=== PATIENT | male | born 1965 | race Caucasian/White ===

== ENCOUNTER 2019-10-20 19:50 | Emergency (ER) | payer MEDICAID ==
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
--- NOTE | 2019-10-21 07:50 | CR ---
Chest: Portable view of the chest was obtained. Comparison: No previous chest imaging is available. Thoracic aorta is enlarged and may possibly be aneurysmal. Prior sternotomy is noted. Surgical clips are seen overlying the right lung apex. Lungs are clear with no acute parenchymal change. Heart is not enlarged. Bony structures are grossly intact. Impression: 1. Thoracic aorta is enlarged and possibly aneurysmal. 2. Previous sternotomy. Surgical clips overlying the upper right abdomen. 3. Nothing acute is otherwise seen on portable chest x-ray. Diagnostic code #3 Study was dictated in MDT
== END 2019-10-20 20:34 | disposition other institution (70) ==
LOC: JD.ED 19:50
DX: F10.129 Alcohol abuse with intoxication, unspecified (principal); I10 Essential (primary) hypertension; F17.210 Nicotine dependence, cigarettes, uncomplicated
CPT/HCPCS: 71045; 71045-26; 99283; 99285-25

== ENCOUNTER 2020-01-09 15:45 | Emergency (ER) | payer MEDICAID ==
--- NOTE | 2020-01-09 16:07 | EDM.PDOC ---
ED HPI GENERAL MEDICAL PROBLEM - General Chief Complaint: General Stated Complaint: CHEST XRAY Time Seen by Provider: 01/09/20 16:05 - History of Present Illness INITIAL COMMENTS - FREE TEXT/NARRATIVE: 54-year-old male presents the emergency room after being sent here by [facility] he has had a positive skin test for tuberculosis he needs a chest x-ray. He also needs approval to use his chronic medications. Patient had a skin test applied on Monday and it is enlarged today progressively getting bigger since then. Patient has a history of positive skin test and has been told he probably should not have these in the future. Patient does not have a fever the patient does not have a cough. The patient like was incarcerated for the last week. And is trying to get into a treatment program for alcoholism. - Related Data Allergies Allergy/AdvReac Type Severity Reaction Status Date / Time No Known Allergies Allergy Verified 01/09/20 15:51 Home Meds: Home Meds Aspirin [Aspirin EC] 325 mg PO DAILY 01/09/20 [History] Betamethasone Dipropionate [Diprosone 0.05% Crm] 1 dose TOP BID 01/09/20 [History] Cyanocobalamin (Vitamin B-12) [B-12] 1,000 mcg PO DAILY 01/09/20 [History] Losartan [Cozaar] 50 mg PO DAILY 01/09/20 [History] NIFEdipine [Nifedipine ER] 60 mg PO DAILY 01/09/20 [History] Nebivolol [Bystolic] 2.5 mg PO DAILY 01/09/20 [History] Omeprazole 20 mg PO DAILY 01/09/20 [History] Thiamine [Vitamin B-1] 1 tab PO DAILY 01/09/20 [History] atorvaSTATin [Lipitor] 40 mg PO BEDTIME 01/09/20 [History] hydrALAZINE [Apresoline] 25 mg PO TID 01/09/20 [History] levETIRAcetam [Levetiracetam] 1,000 mg PO BID 01/09/20 [History] Past Medical History Cardiovascular History: Reports: Hypertension Psychiatric History: Reports: Depression Social & Family History - Caffeine Use Caffeine Use: Reports: None ED ROS GENERAL - Review of Systems Review Of Systems: See Below Constitutional: Reports: No Symptoms HEENT: Reports: No Symptoms Respiratory: Reports: No Symptoms. Denies: Cough, Sputum, Hemoptysis Cardiovascular: Reports: No Symptoms. Denies: Chest Pain, Dyspnea on Exertion, Palpitations GI/Abdominal: Reports: No Symptoms : Reports: No Symptoms Musculoskeletal: Reports: No Symptoms Skin: Reports: No Symptoms Neurological: Reports: No Symptoms Psychiatric: Denies: Agitation, Anxiety, Confusion Hematologic/Lymphatic: Reports: No Symptoms Immunologic: Reports: No Symptoms ED EXAM, GENERAL - Physical Exam Exam: See Below Exam Limited By: No Limitations General Appearance: Alert, No Apparent Distress Eye Exam: Bilateral Eye: Normal Inspection Ears: Normal External Exam, Hearing Grossly Normal, Other (Canals full of cerumen bilaterally) Nose: Normal Inspection, Normal Mucosa, No Blood Throat/Mouth: Normal Inspection, Normal Lips, Normal Teeth, Normal Gums, Normal Oropharynx, Normal Voice, No Airway Compromise Head: Atraumatic, Normocephalic Neck: Normal Inspection, Supple, Non-Tender, Full Range of Motion. No: Lymphadenopathy (L), Lymphadenopathy (R) Respiratory/Chest: No Respiratory Distress, Lungs Clear, Normal Breath Sounds Cardiovascular: Regular Rate, Rhythm, No Edema, No Murmur GI/Abdominal: Normal Bowel Sounds, Soft, Non-Tender Extremities: Normal Inspection, No Pedal Edema Neurological: Alert, Oriented, Normal Cognition Course - Vital Signs Last Recorded V/S: Last Vital Signs Temp 36.7 C 01/09/20 15:52 Pulse 85 01/09/20 15:52 Resp 16 01/09/20 15:52 BP 148/77 H 01/09/20 15:52 Pulse Ox 95 01/09/20 15:52 - Re-Assessments/Exams Free Text/Narrative Re-Assessment/Exam: 01/09/20 18:29 Chest x-ray is negative for any acute changes there is a nodule within the left lung base thought by radiology to represent a nipple density. I have recommended to the patient that he be seen in follow-up with his regular provider in the next few months on this. It does not appear he has active TB at this point he can go [place] his medication list is reviewed and he can take all his routine medications. Departure - Departure Time of Disposition: 18:30 Disposition: Home, Self-Care 01 Clinical Impression: Positive skin test for tuberculosis Clinical Impression: (Ruled Out): Normal chest x-ray - Discharge Information Referrals: PCP,None [Primary Care Provider] - Forms: ED Department Discharge Additional Instructions: Return to the emergency room with any questions or problems. Patient is cleared for [facility] services Patient medications: Patient can take all the medications listed below. Enteric-coated aspirin 325 mg daily p.o. Omeprazole 20 mg 30 to 60 minutes before his morning meal p.o. Nifedipine extended release 60 mg daily p.o. Cyanocobalamin, or vitamin B12 1000 mcg daily p.o. Levetiracetam 1000 mg p.o. twice daily Hydralazine 25 mcg every 8 hours p.o. Thiamine 1 tab p.o. daily p.o. Atorvastatin 40 mg at bedtime p.o. Bystolic 2.5 mg twice daily p.o. losartan 50 mg daily in the evening Betamethasone 0.05% cream applied twice daily Follow-up with your regular healthcare provider in the next couple of months review your chest x-ray and see if it warrants further investigation. Sepsis Event Note (ED) - Evaluation Sepsis Screening Result: No Definite Risk - Focused Exam Vital Signs: Vital Signs Temp Pulse Resp BP Pulse Ox 01/09/20 15:52 36.7 C 85 16 148/77 H 95
--- NOTE | 2020-01-09 17:15 | CR ---
Chest: 2 views of the chest were obtained. Comparison: Previous chest x-ray of 10/20/19. Heart size is normal. Aorta is aneurysmal. Surgical clips are seen overlying the upper right chest. Equivocal nodule within the left lung base. This most likely represents nipple density. Lungs otherwise are clear. Several compression deformities are seen within the mid and lower thoracic spine which are most likely old. Previous sternotomy is noted. Impression: 1. Nodule within the left lung base most likely representing nipple density. 2. Probable thoracic aneurysm. 3. No acute abnormality is otherwise seen. Diagnostic code #3 This report was dictated in MDT
== END 2020-01-09 19:10 | disposition home or self-care (01) ==
LOC: JD.ED 15:45
DX: R76.11 Nonspecific reaction to tuberculin skin test without active tuberculosis (principal); H61.23 Impacted cerumen, bilateral; I10 Essential (primary) hypertension; Z79.82 Long term (current) use of aspirin; Z79.899 Other long term (current) drug therapy
CPT/HCPCS: 71046; 71046-26; 99282; 99283

== ENCOUNTER 2022-02-07 12:57 | Emergency (ER) | payer MEDICAID | END 2022-02-07 14:50 | disposition home or self-care (01) | LOC: JD.ED 12:57 | DX: F10.920 Alcohol use, unspecified with intoxication, uncomplicated (principal); I10 Essential (primary) hypertension; Z79.899 Other long term (current) drug therapy; Z79.82 Long term (current) use of aspirin; Y04.0XXA Assault by unarmed brawl or fight, initial encounter | CPT/HCPCS: 70450; 70450-26; 99284 ==

== ENCOUNTER 2022-02-08 16:26 | Emergency (ER) | payer MEDICAID ==
[2022-02-08] MEDS ORDERED: LORazepam 2 MG/ML SDV IVPUSH ONE (17:43)
== END 2022-02-08 20:06 | disposition home or self-care (01) ==
LOC: JD.ED 16:26
DX: R56.9 Unspecified convulsions (principal); I10 Essential (primary) hypertension
CPT/HCPCS: 36415; 70450; 80053; 80307; 85025; 96374; 99285; J2060

== ENCOUNTER 2024-03-29 09:16 | Emergency (ER) | payer MEDICAID ==
[2024-03-29] MEDS ORDERED: Sodium Chloride 0.9% 10 ML Syringe FLUSH PRN (09:58)
[2024-03-29 10:24] LABS: APPEARANCE,URINE CLEAR (Clear); BILIRUBIN,URINE NEGATIVE (Negative); COLOR,URINE YELLOW (Yellow); GLUCOSE,URINE NEGATIVE (Negative); KETONES,URINE NEGATIVE (Negative); LEUKOCYTE ESTERASE,URINE NEGATIVE (Negative); NITRITE,URINE NEGATIVE (Negative); OCCULT BLOOD,URINE NEGATIVE (Negative); PH,URINE 5.5 (5.0-8.0); PROTEIN,URINE 1+ (Negative); UROBILINOGEN,URINE 0.2 (0.2-1.0)
[2024-03-29 10:41] LABS: BACTERIA,URINE FEW /hpf (FEW); EPITHELIAL CELLS,URINE 0-5 /hpf (0-5); MUCUS,URINE FEW /hpf (FEW); RBC,URINE 0-5 /hpf (0-5); WBC,URINE 0-5 /hpf (0-5)
[2024-03-29 10:41] LABS: BASOPHILS ABSOLUTE AUTO 0.1 K/mm3 (0.0-0.2); BASOPHILS PERCENT AUTO 1.5 % (0.0-1.0); EOSINOPHILS ABSOLUTE AUTO 0.8 K/mm3 (0.0-0.4); EOSINOPHILS PERCENT AUTO 10.7 % (0.0-6.0); HEMATOCRIT 44.3 % (42.0-52.0); HEMOGLOBIN 15.1 gm/dl (14.0-18.0); IMMATURE GRAN ABSOLUTE AUTO 0.02 K/mm3 (0.00-0.05); IMMATURE GRAN PERCENT AUTO 0.3 % (0.0-0.4); LYMPHOCYTES ABSOLUTE AUTO 2.3 K/mm3 (1.0-4.8); LYMPHOCYTES PERCENT AUTO 31.8 % (24.0-44.0); MEAN CORPUSCULAR HEMOGLOBIN 30.6 pg (28.0-32.0); MEAN CORPUSCULAR HGB CONC 34.1 g/dl (32.0-36.0); MEAN CORPUSCULAR VOLUME 89.9 fl (83.0-99.0); MEAN PLATELET VOLUME 10.1 fl (9.4-12.4); MONOCYTES ABSOLUTE AUTO 0.7 K/mm3 (0.0-0.8); MONOCYTES PERCENT AUTO 9.2 % (0.0-8.0); NEUTROPHILS ABSOLUTE AUTO 3.4 K/mm3 (1.8-7.7); NEUTROPHILS PERCENT AUTO 46.5 % (41.0-71.0); PLATELET COUNT,PLT 196 K/mm3 (150-400); RED BLOOD CELL COUNT 4.93 M/mm3 (4.52-5.90); WHITE BLOOD CELL COUNT,WBC 7.29 K/mm3 (3.9-11.3)
[2024-03-29 11:10] LABS: A/G RATIO 1.4 (1-2); ALBUMIN 4.1 g/dl (3.4-5.0); ANION GAP 14.1 (5-15); BILIRUBIN TOTAL 0.7 mg/dL (0.2-1.0); BUN/CREATININE RATIO 9.4 (14-18); CALCIUM 8.7 mg/dL (8.5-10.1); CREATININE 1.6 mg/dL (0.7-1.3); EST CRCL DRUG DOSING (CG) 54.56 mL/min; POTASSIUM,K 4.1 mEq/L (3.5-5.1); PROTEIN TOTAL,TP 7.1 g/dl (6.4-8.2)
== END 2024-03-29 15:26 | disposition home or self-care (01) ==
LOC: JD.ED 09:16
DX: R10.31 Right lower quadrant pain (principal); I10 Essential (primary) hypertension; Z88.5 Allergy status to narcotic agent; Z79.899 Other long term (current) drug therapy
CPT/HCPCS: 36415; 71046; 71046-26; 80053; 81001; 83605; 83690; 84484; 85025; 93005; 93010; 99284